=== PATIENT | male | born 1970 | race Caucasian/White ===

== ENCOUNTER 2020-03-08 19:21 | Emergency (ER) | payer OTHER ==
[~2020-03-08] VITALS: Ht 182.9 cm; Wt 100.2 kg
== END 2020-03-08 22:42 | disposition home or self-care (01) ==
LOC: ER 19:21
DX: S30.1XXA Contusion of abdominal wall, initial encounter (principal); S20.212A Contusion of left front wall of thorax, initial encounter; W18.09XA Striking against other object with subsequent fall, initial encounter; Y93.89 Activity, other specified; Y92.89 Other specified places as the place of occurrence of the external cause; Y99.8 Other external cause status